=== PATIENT | female | born 1935 | race Caucasian/White ===

== ENCOUNTER 2018-11-11 10:19 | Inpatient (IN) ==
[2018-11-11] MEDS ORDERED: methylPREDNISolone SOD SUC 125 MG/2 ML VIAL IV STA (10:48)
[2018-11-11] MEDS ORDERED: AZITHROMYCIN INJ 500 MG in SODIUM CHLORIDE 0.9% 250 ML IV STA (10:48)
[2018-11-11] MEDS ORDERED: ONDANSETRON 4 MG/2 ML VIAL IV STA (10:48)
[2018-11-11] MEDS ORDERED: ALBUTEROL 2.5 MG/3 ML NEB RESP TX SCH (11:00)
[2018-11-11 11:23] LABS: Basophils # 0.1 10*3/uL (0.0-0.2); Basophils % 0.4 % (0.0-0.8); Eosinophils # 0.5 10*3/uL (0.0-0.87); Eosinophils % 4.2 % (0.00-10.9); Hematocrit 35.3 VOL% (35.7-47.0); Hemoglobin 10.9 GM/DL (12.0-16.0); Immature Granulocytes % 0.9 %; Immature Granulocytes Absolute 0.11 #; Lymphocytes # 0.8 10*3/uL (1.4-4.0); Lymphocytes % 6.6 % (21.3-54.2); Mean Corpuscular HGB Conc 30.9 GM/DL (32-36); Monocytes % 6.5 % (1.7-12.7); Neutrophils % 81.4 % (38.7-73.9); Platelet Count 497 T/CUMM (130-400); Red Blood Count 3.88 MC/CUMM (3.8-5.5); Red Cell Distribution Width 13.7 % (9.3-17.3); White Blood Count 12.4 T/CUMM (4-12)
[2018-11-11 11:32] LABS: PT Patient Result 10.9 SECS; Partial Thromboplastin Time 21.6 SECS (0-40)
[2018-11-11 11:58] LABS: Bilirubin,Total 0.4 MG/DL (0.2-1.0); Calcium 8.6 MG/DL (8.5-10.1); Osmolality,Calculated 279.4 MOS/KG (273-304); Total Protein 5.9 G/DL (6.4-8.3); Troponin I < 0.015 NG/ML (0.00-0.045)
[2018-11-11] MEDS ORDERED: cefTRIAXone 1,000 MG in SODIUM CHLORIDE 0.9% 100 ML IV STA (11:58)
[2018-11-11 12:21] LABS: Hypochromasia 1+; Platelet Estimate Adequate
[2018-11-11] MEDS ORDERED: LACTULOSE 20 GM/30 ML UDCUP PO PRN (12:23)
[2018-11-11] MEDS ORDERED: PROMETHAZINE 25 MG/1 ML VIAL IM PRN (12:23)
[2018-11-11] MEDS ORDERED: ACETAMINOPHEN 325 MG TABLET PO PRN ×2 (12:23→12:27)
[2018-11-11] MEDS ORDERED: ONDANSETRON 4 MG/2 ML VIAL IV PRN (12:23)
[2018-11-11] MEDS ORDERED: BUTALBITAL/ACETAMIN/CAFFEINE 50-325-40 MG TABLET PO PRN (12:27)
[2018-11-11] MEDS ORDERED: MAGNESIUM HYDROXIDE SUSP 30 ML UDCUP PO PRN (12:27)
[2018-11-11] MEDS: ALBUTEROL/IPRATROPIUM 3 ML NEB RESP TX SCH ×2 (13:00→19:09)
[2018-11-11] MEDS: DORNASE ALFA 2.5 MG/2.5 ML VIAL RESP TX SCH ×2 (13:11→19:15)
[2018-11-11] MEDS ORDERED: SODIUM CHLORIDE 0.9% 1,000 ML IV STA (14:06)
[2018-11-11] MEDS ORDERED: SODIUM CHLORIDE 0.9% 1,500 ML IV ONE (16:19)
[2018-11-11] MEDS: methylPREDNISolone SOD SUC 40 MG/1 ML VIAL IV SCH (17:20)
[2018-11-11] MEDS: PANTOPRAZOLE 40 MG TABLET PO SCH (17:20)
[2018-11-11] MEDS: LEVOFLOXACIN INJ 750 MG in PREMIX 1 EACH IV SCH (17:52)
[2018-11-11] MEDS: LORATADINE 10 MG TABLET PO SCH (17:57)
[2018-11-11] MEDS: AMITRIPTYLINE 100 MG TABLET PO SCH (17:58)
[2018-11-11] MEDS: guaiFENesin/DM ER 600-30 MG TABLET PO SCH ×2 (17:58→21:37)
[2018-11-11] MEDS: SODIUM CHLORIDE 0.9% 1,000 ML IV SCH (19:40)
[2018-11-11] MEDS ORDERED: VANCOMYCIN INJ 1,000 MG in SODIUM CHLORIDE 0.9% 250 ML IV ONE (21:33)
[2018-11-11] MEDS: PIPERACILLIN/TAZOBACTAM 3,375 MG in SODIUM CHLORIDE 0.9% 100 ML IV SCH (21:34)
[2018-11-11] MEDS: SIMVASTATIN 10 MG TABLET PO SCH (21:37)
[2018-11-11] MEDS: ENOXAPARIN 40 MG/0.4 ML SYRINGE SUBCUT SCH (21:37)
[2018-11-11] MEDS: DONEPEZIL 5 MG TABLET PO SCH (21:37)
[2018-11-11] MEDS: traZODone 50 MG TABLET PO SCH (21:37)
[2018-11-11] MEDS: MAGNESIUM CHLORIDE 64 MG TABLET PO SCH (21:37)
[2018-11-11] MEDS: FELODIPINE 10 MG PO SCH (21:45)
[2018-11-12] MEDS: ALBUTEROL/IPRATROPIUM 3 ML NEB RESP TX SCH ×4 (00:22→19:00)
[2018-11-12] MEDS: methylPREDNISolone SOD SUC 40 MG/1 ML VIAL IV SCH ×2 (01:00→11:39)
[2018-11-12 02:45] LABS: Calcium 7.7 MG/DL (8.5-10.1)
[2018-11-12 03:09] LABS: Immature Granulocytes Absolute 0.09 #; Lymphocytes # 0.8 10*3/uL (1.4-4.0); Lymphocytes % 8.8 % (21.3-54.2); Mean Corpuscular HGB Conc 30.7 GM/DL (32-36); Mean Corpuscular Volume 91.5 FL (87-102); Mean Platelet Volume 10.8 FL (9.6-12.0); Monocytes % 1.1 % (1.7-12.7); Neutrophils % 89.1 % (38.7-73.9); Platelet Count 396 T/CUMM (130-400); White Blood Count 9.4 T/CUMM (4-12)
[2018-11-12 03:20] LABS: Hemoglobin 8.6 GM/DL (12.0-16.0); Red Blood Count 3.06 MC/CUMM (3.8-5.5)
[2018-11-12] MEDS: PIPERACILLIN/TAZOBACTAM 3,375 MG in SODIUM CHLORIDE 0.9% 100 ML IV SCH ×3 (04:15→20:33)
[2018-11-12] MEDS: LEVOTHYROXINE 25 MCG TABLET PO SCH (06:37)
[2018-11-12] MEDS: DORNASE ALFA 2.5 MG/2.5 ML VIAL RESP TX SCH ×2 (08:30→19:00)
[2018-11-12] MEDS: guaiFENesin/DM ER 600-30 MG TABLET PO SCH ×2 (09:30→20:32)
[2018-11-12] MEDS: SODIUM CHLORIDE 0.9% 1,000 ML IV SCH (09:31)
[2018-11-12] MEDS: LORATADINE 10 MG TABLET PO SCH (09:31)
[2018-11-12] MEDS: MAGNESIUM CHLORIDE 64 MG TABLET PO SCH ×2 (09:31→20:32)
[2018-11-12] MEDS: AMITRIPTYLINE 100 MG TABLET PO SCH (09:31)
[2018-11-12] MEDS: ASPIRIN EC 81 MG TABLET PO SCH (09:31)
[2018-11-12] MEDS: PANTOPRAZOLE 40 MG TABLET PO SCH (09:31)
[2018-11-12] MEDS: FELODIPINE 10 MG PO SCH ×2 (09:32→20:37)
[2018-11-12] MEDS: LEVOFLOXACIN INJ 750 MG in PREMIX 1 EACH IV SCH (11:38)
[2018-11-12] MEDS: LACTATED RINGERS 1,000 ML IV SCH (14:42)
[2018-11-12] MEDS: ENOXAPARIN 40 MG/0.4 ML SYRINGE SUBCUT SCH (20:32)
[2018-11-12] MEDS: SIMVASTATIN 10 MG TABLET PO SCH (20:33)
[2018-11-12] MEDS: DONEPEZIL 5 MG TABLET PO SCH (20:33)
[2018-11-12] MEDS: traZODone 50 MG TABLET PO SCH (20:33)
[2018-11-13] MEDS: methylPREDNISolone SOD SUC 40 MG/1 ML VIAL IV SCH ×2 (00:11→11:47)
[2018-11-13] MEDS: ALBUTEROL/IPRATROPIUM 3 ML NEB RESP TX SCH ×4 (00:20→18:50)
[2018-11-13] MEDS: LACTATED RINGERS 1,000 ML IV SCH ×2 (05:13→16:20)
[2018-11-13 05:39] LABS: Basophils % 0.1 % (0.0-0.8); Hematocrit 26.6 VOL% (35.7-47.0); Hemoglobin 8.1 GM/DL (12.0-16.0); Immature Granulocytes % 1.3 %; Immature Granulocytes Absolute 0.21 #; Lymphocytes # 1.3 10*3/uL (1.4-4.0); Lymphocytes % 8.3 % (21.3-54.2); Mean Corpuscular HGB Conc 30.5 GM/DL (32-36); Mean Corpuscular Volume 90.5 FL (87-102); Mean Platelet Volume 10.3 FL (9.6-12.0); Monocytes % 2.5 % (1.7-12.7); Neutrophils % 87.8 % (38.7-73.9); Platelet Count 447 T/CUMM (130-400); Red Blood Count 2.94 MC/CUMM (3.8-5.5); White Blood Count 16.2 T/CUMM (4-12)
[2018-11-13 06:15] LABS: Calcium 8.5 MG/DL (8.5-10.1)
[2018-11-13] MEDS: LEVOTHYROXINE 25 MCG TABLET PO SCH (06:34)
[2018-11-13] MEDS: PIPERACILLIN/TAZOBACTAM 3,375 MG in SODIUM CHLORIDE 0.9% 100 ML IV SCH ×3 (06:34→21:09)
[2018-11-13] MEDS: DORNASE ALFA 2.5 MG/2.5 ML VIAL RESP TX SCH ×2 (08:14→18:50)
[2018-11-13] MEDS: guaiFENesin/DM ER 600-30 MG TABLET PO SCH ×2 (09:32→21:13)
[2018-11-13] MEDS: LORATADINE 10 MG TABLET PO SCH (09:32)
[2018-11-13] MEDS: MAGNESIUM CHLORIDE 64 MG TABLET PO SCH ×2 (09:32→21:09)
[2018-11-13] MEDS: AMITRIPTYLINE 100 MG TABLET PO SCH (09:33)
[2018-11-13] MEDS: ASPIRIN EC 81 MG TABLET PO SCH (09:33)
[2018-11-13] MEDS: FELODIPINE 10 MG PO SCH ×2 (09:33→21:13)
[2018-11-13] MEDS: PANTOPRAZOLE 40 MG TABLET PO SCH (09:33)
[2018-11-13] MEDS: LEVOFLOXACIN INJ 750 MG in PREMIX 1 EACH IV SCH (11:46)
[2018-11-13 19:05] LABS: Apearance,Urine CLEAR (Clear); Bilirubin,Urine Negative (Negative); Glucose,Urine (UA) Negative (Negative); Ketones,Urine Negative (Negative); Nitrite,Urine Negative (Negative); Protein,Urine Negative; Urine Color Yellow (Yellow); Urine Specific Gravity 1.025 (1.001-1.035)
[2018-11-13 19:06] LABS: Blood, Urine Negative (Negative); Ictotest,Urine Negative (Negative); Urine Urobilinogen 0.2 EU/DL (0.2-1.0)
[2018-11-13 19:07] LABS: Bacteria,Urine Moderate /HPF (Few); Squamous Epithelial Cell,Urine Many /HPF (0-10); WBC,Urine 20-30 /HPF (0-6)
[2018-11-13] MEDS: traZODone 50 MG TABLET PO SCH (21:09)
[2018-11-13] MEDS: DONEPEZIL 5 MG TABLET PO SCH (21:09)
[2018-11-13] MEDS: ENOXAPARIN 40 MG/0.4 ML SYRINGE SUBCUT SCH (21:09)
[2018-11-13] MEDS: SIMVASTATIN 10 MG TABLET PO SCH (21:09)
[2018-11-14] MEDS: ALBUTEROL/IPRATROPIUM 3 ML NEB RESP TX SCH ×2 (00:20→07:29)
[2018-11-14] MEDS: methylPREDNISolone SOD SUC 40 MG/1 ML VIAL IV SCH ×2 (01:45→13:18)
[2018-11-14] MEDS: PIPERACILLIN/TAZOBACTAM 3,375 MG in SODIUM CHLORIDE 0.9% 100 ML IV SCH ×2 (03:00→13:18)
[2018-11-14] MEDS: LEVOTHYROXINE 25 MCG TABLET PO SCH (05:34)
[2018-11-14] MEDS: LACTATED RINGERS 1,000 ML IV SCH (05:36)
[2018-11-14 07:00] LABS: Basophils % 0.2 % (0.0-0.8); Hematocrit 27.9 VOL% (35.7-47.0); Hemoglobin 8.6 GM/DL (12.0-16.0); Immature Granulocytes % 1.9 %; Immature Granulocytes Absolute 0.23 #; Lymphocytes # 1.2 10*3/uL (1.4-4.0); Mean Corpuscular HGB Conc 30.8 GM/DL (32-36); Mean Corpuscular Volume 90.6 FL (87-102); Mean Platelet Volume 10.5 FL (9.6-12.0); Monocytes % 3.1 % (1.7-12.7); Neutrophils % 84.8 % (38.7-73.9); Platelet Count 480 T/CUMM (130-400); Red Blood Count 3.08 MC/CUMM (3.8-5.5); Red Cell Distribution Width 14.1 % (9.3-17.3); White Blood Count 11.9 T/CUMM (4-12)
[2018-11-14 07:26] LABS: Calcium 8.1 MG/DL (8.5-10.1); Osmolality,Calculated 293.7 MOS/KG (273-304)
[2018-11-14] MEDS: DORNASE ALFA 2.5 MG/2.5 ML VIAL RESP TX SCH (07:29)
[2018-11-14] MEDS: FELODIPINE 10 MG PO SCH (09:37)
[2018-11-14] MEDS: LORATADINE 10 MG TABLET PO SCH (09:39)
[2018-11-14] MEDS: MAGNESIUM CHLORIDE 64 MG TABLET PO SCH (09:39)
[2018-11-14] MEDS: AMITRIPTYLINE 100 MG TABLET PO SCH (09:39)
[2018-11-14] MEDS: PANTOPRAZOLE 40 MG TABLET PO SCH (09:39)
[2018-11-14] MEDS: guaiFENesin/DM ER 600-30 MG TABLET PO SCH (09:39)
[2018-11-14] MEDS: ASPIRIN EC 81 MG TABLET PO SCH (09:39)
[2018-11-14 12:07] VITALS: BP 136/84
[2018-11-14] MEDS: LEVOFLOXACIN INJ 750 MG in PREMIX 1 EACH IV SCH (13:18)
== END 2018-11-14 14:24 | disposition hospice, home (50) | DRG 871 ==
LOC: EDUNIT# → EDBD → N.ED 10:19 → N.EDINP 12:23 → SUATTDRO 12:23 → N.5E 14:28
PROVIDERS: ADMIT Internal Medicine Nephrology; ATTEND Family Medicine

== ENCOUNTER 2020-05-12 10:23 | Observation (INO) ==
[2020-05-12 10:47] LABS: Basophils # 0.1 10*3/uL (0.0-0.2); Basophils % 0.4 % (0.0-0.8); Eosinophils # 0.1 10*3/uL (0.0-0.87); Eosinophils % 0.6 % (0.00-10.9); Hematocrit 48.1 VOL% (35.7-47.0); Hemoglobin 15.7 GM/DL (12.0-16.0); Immature Granulocytes % 0.5 %; Immature Granulocytes Absolute 0.08 #; Lymphocytes # 1.9 10*3/uL (1.4-4.0); Mean Corpuscular HGB Conc 32.6 GM/DL (32-36); Mean Corpuscular Volume 89.7 FL (87-102); Mean Platelet Volume 9.3 FL (9.6-12.0); Monocytes % 5.5 % (1.7-12.7); Platelet Count 401 T/CUMM (130-400); Red Blood Count 5.36 MC/CUMM (3.8-5.5); Red Cell Distribution Width 13.2 % (9.3-17.3); White Blood Count 16.1 T/CUMM (4-12)
[2020-05-12 11:05] LABS: Calcium 9.3 MG/DL (8.5-10.1); Osmolality,Calculated 283.4 MOS/KG (273-304)
[2020-05-12 11:21] LABS: Bilirubin,Urine Negative (Negative); Blood, Urine Negative (Negative); Glucose,Urine (UA) 50 mg/dL (Negative); Ketones,Urine 5 mg/dL (Negative); Mucus,Urine Occasional /LPF (Occasional); Nitrite,Urine Negative (Negative); Protein,Urine >=500 MG/DL; RBC,Urine 4 /HPF (0-4); Urine Appearance CLEAR (Clear); Urine Color Yellow (Yellow); Urine Specific Gravity 1.011 (1.001-1.035); Urine Urobilinogen < 2.0 EU/DL (0.2-1.0); WBC,Urine <1 /HPF (0-6)
[2020-05-12] MEDS ORDERED: hydrALAZINE 20 MG/1 ML VIAL IV PRN (12:24)
[2020-05-12] MEDS ORDERED: GLUCAGON 1 MG VIAL IM PRN (12:24)
[2020-05-12] MEDS ORDERED: DOCUSATE SODIUM 100 MG CAPSULE PO PRN (12:24)
[2020-05-12] MEDS ORDERED: ACETAMINOPHEN 325 MG TABLET PO PRN (12:24)
[2020-05-12] MEDS ORDERED: guaiFENesin/DM ER 600-30 MG TABLET PO PRN (12:24)
[2020-05-12] MEDS ORDERED: DEXTROSE 50% 25 GM/50 ML VIAL IV PRN (12:24)
[2020-05-12] MEDS ORDERED: POTASSIUM CHLORIDE INJ 30 MEQ in SODIUM CHLORIDE 0.9% 1,000 ML IV SCH (12:30)
[2020-05-12] MEDS: hydrALAZINE 20 MG/1 ML VIAL IV SCH ×2 (13:52→20:42)
[2020-05-12] MEDS ORDERED: cefTRIAXone 1,000 MG in SYRINGE 1 EACH IV SCH (14:00)
[2020-05-12 14:16] LABS: Risk Ratio 4.62; Thyroid Stimulating Hormone 4.05 uIU/ml (0.358-3.74); VLDL CHOLESTEROL 34.2 MG/DL
[2020-05-12] MEDS: POTASSIUM CHLORIDE INJ 30 MEQ in SODIUM CHLORIDE 0.9% 1,000 ML IV SCH (14:34)
[2020-05-12 16:45] LABS: Calcium 9.1 MG/DL (8.5-10.1); Osmolality,Calculated 281.5 MOS/KG (273-304)
[2020-05-12] MEDS ORDERED: ENOXAPARIN 40 MG/0.4 ML SYRINGE SUBCUT SCH (21:00)
[2020-05-13] MEDS: hydrALAZINE 20 MG/1 ML VIAL IV SCH ×3 (01:37→12:33)
[2020-05-13] MEDS: POTASSIUM CHLORIDE INJ 30 MEQ in SODIUM CHLORIDE 0.9% 1,000 ML IV SCH (04:00)
[2020-05-13] MEDS ORDERED: ONDANSETRON 4 MG/2 ML VIAL IV PRN (04:08)
[2020-05-13 06:15] LABS: Basophils % 0.2 % (0.0-0.8); Eosinophils % 0.1 % (0.00-10.9); Hematocrit 45.6 VOL% (35.7-47.0); Immature Granulocytes % 0.5 %; Lymphocytes # 2.1 10*3/uL (1.4-4.0); Lymphocytes % 10.9 % (21.3-54.2); Mean Corpuscular HGB Conc 32.9 GM/DL (32-36); Mean Corpuscular Volume 89.8 FL (87-102); Mean Platelet Volume 9.3 FL (9.6-12.0); Monocytes % 5.8 % (1.7-12.7); Neutrophils % 82.5 % (38.7-73.9); Platelet Count 470 T/CUMM (130-400); Red Blood Count 5.08 MC/CUMM (3.8-5.5); Red Cell Distribution Width 13.5 % (9.3-17.3); White Blood Count 19.2 T/CUMM (4-12)
[2020-05-13 06:30] LABS: Calcium 8.9 MG/DL (8.5-10.1); Osmolality,Calculated 286.4 MOS/KG (273-304)
[2020-05-13] MEDS ORDERED: LEVOTHYROXINE 100 MCG VIAL IV SCH (07:00)
[2020-05-13 11:32] VITALS: BP 155/53
[2020-05-13] MEDS ORDERED: ACETAMINOPHEN 325 MG TABLET PO PRN (11:40)
[2020-05-13] MEDS ORDERED: MAGNESIUM HYDROXIDE SUSP 30 ML UDCUP PO PRN (11:40)
[2020-05-13] MEDS ORDERED: DONEPEZIL 5 MG TABLET PO SCH (21:00)
[2020-05-13] MEDS ORDERED: DOXYCYCLINE HYCLATE 100 MG CAPSULE PO SCH (21:00)
[2020-05-13] MEDS ORDERED: SIMVASTATIN 10 MG TABLET PO SCH (21:00)
[2020-05-13] MEDS ORDERED: CEFUROXIME 500 MG TABLET PO SCH (21:00)
[2020-05-13] MEDS ORDERED: FELODIPINE 5 MG TABLET PO SCH (21:00)
[2020-05-13] MEDS ORDERED: MAGNESIUM CHLORIDE 64 MG TABLET PO SCH (21:00)
[2020-05-14] MEDS ORDERED: LEVOTHYROXINE 25 MCG TABLET PO SCH (07:00)
[2020-05-14] MEDS ORDERED: PANTOPRAZOLE 40 MG TABLET PO SCH (09:00)
[2020-05-14] MEDS ORDERED: CITALOPRAM 20 MG TABLET PO SCH (09:00)
[2020-05-14] MEDS ORDERED: LORATADINE 10 MG TABLET PO SCH (09:00)
[2020-05-14] MEDS ORDERED: ASPIRIN CHEW 81 MG TABLET PO SCH (09:00)
== END 2020-05-13 14:59 ==
LOC: EDBD → EDUNIT# → N.ED 10:23 → N.EDINP 10:23 → N.4E 15:22
PROVIDERS: ADMIT Internal Medicine; ATTEND Internal Medicine

== ENCOUNTER 2021-05-29 11:59 | Inpatient (IN) ==
[2021-05-29] MEDS ORDERED: SODIUM CHLORIDE 0.9% 1,000 ML IV STA ×2 (12:29→13:13)
[2021-05-29 12:48] LABS: Basophils # 0.1 10*3/uL (0.0-0.2); Basophils % 0.3 % (0.0-0.8); Eosinophils # 0.1 10*3/uL (0.0-0.87); Eosinophils % 0.2 % (0.00-10.9); Hematocrit 39.7 VOL% (35.7-47.0); Hemoglobin 12.4 GM/DL (12.0-16.0); Immature Granulocytes % 1.1 %; Immature Granulocytes Absolute 0.45 #; Lymphocytes # 2.6 10*3/uL (1.4-4.0); Lymphocytes % 6.5 % (21.3-54.2); Mean Corpuscular HGB Conc 31.2 GM/DL (32-36); Mean Platelet Volume 9.7 FL (9.6-12.0); Neutrophils % 86.9 % (38.7-73.9); Platelet Count 428 T/CUMM (130-400); Red Blood Count 4.46 MC/CUMM (3.8-5.5); Red Cell Distribution Width 14.2 % (9.3-17.3); White Blood Count 39.8 T/CUMM (4-12)
[2021-05-29] MEDS ORDERED: LEVOFLOXACIN INJ 500 MG/100 ML PREMIX IV STA (13:03)
[2021-05-29 13:07] LABS: Band Neutrophils 9 % (0-10); Lymphocytes 8 % (20-55); Platelet Estimate Normal; Segmented Neutrophils 76 % (50-85); Total Cells Counted 100
[2021-05-29 13:08] LABS: Alanine Aminotransferase 23 U/L (13-56); Alkaline Phosphatase 81 U/L (45-117); Anisocytosis 1+; Aspartate Amino Transferase 16 U/L (0-37); Blood Urea Nitrogen 32 MG/DL (7-18); Calcium 8.4 MG/DL (8.5-10.1); Carbon Dioxide 30 MMOL/L (21-32); Estimated Glom Filtration Rate 29 ML/MIN; Glucose 126 MG/DL (74-106); Macrocytosis Slight; Osmolality,Calculated 287.4 MOS/KG (273-304); Potassium 3.6 MMOL/L (3.5-5.1); Sodium 140 MMOL/L (136-145); Total Protein 5.5 G/DL (6.4-8.2)
[2021-05-29 13:36] LABS: Bacteria,Urine Moderate /HPF (Few); Bilirubin,Urine Negative (Negative); Blood, Urine Moderate mg/dL (Negative); Glucose,Urine (UA) Negative (Negative); Hyaline Casts,Urine 27 /LPF (0-3); Ketones,Urine Negative (Negative); Mucus,Urine Many /LPF (Occasional); Nitrite,Urine Negative (Negative); Protein,Urine 30 MG/DL; RBC,Urine 9 /HPF (0-4); Squamous Epithelial Cell,Urine Few /HPF (0-10); Urine Appearance CLOUDY (Clear); Urine Color Amber (Yellow); Urine Specific Gravity 1.024 (1.001-1.035)
[2021-05-29] MEDS ORDERED: PIPERACILLIN/TAZOBACTAM 3,375 MG in SODIUM CHLORIDE 0.9% 100 ML IV STA (14:06)
[2021-05-29] MEDS ORDERED: GLUCAGON 1 MG VIAL IM PRN (15:25)
[2021-05-29] MEDS ORDERED: ONDANSETRON 4 MG/2 ML VIAL IV PRN (15:25)
[2021-05-29] MEDS ORDERED: LACTATED RINGERS 1,000 ML IV ONE (15:37)
[2021-05-29] MEDS ORDERED: DEXTROSE 50% 25 GM/50 ML SYRINGE IV PRN (15:40)
[2021-05-29 16:28] LABS: Free T4 (Free Thyroxine) 1.35 NG/DL (0.76-1.46); Thyroid Stimulating Hormone 0.694 uIU/ml (0.358-3.74)
[2021-05-29] MEDS: PANTOPRAZOLE 40 MG VIAL IV SCH (17:43)
[2021-05-29] MEDS: ENOXAPARIN 30 MG/0.3 ML SYRINGE SUBCUT SCH (17:43)
[2021-05-29] MEDS: LACTATED RINGERS 1,000 ML IV SCH ×2 (17:44→17:46)
[2021-05-29] MEDS: ALBUTEROL/IPRATROPIUM 3 ML NEB RESP TX SCH (20:38)
[2021-05-29] MEDS: RIVASTIGMINE 4.6 MG/24 HR PATCH TRANSDERM SCH (21:04)
[2021-05-29] MEDS: PIPERACILLIN/TAZOBACTAM 3,375 MG in SODIUM CHLORIDE 0.9% 100 ML IV SCH (21:05)
[2021-05-30] MEDS: LACTATED RINGERS 1,000 ML IV SCH ×5 (00:41→23:44)
[2021-05-30] MEDS: ALBUTEROL/IPRATROPIUM 3 ML NEB RESP TX SCH ×4 (00:55→19:51)
[2021-05-30 05:32] LABS: Basophils # 0.1 10*3/uL (0.0-0.2); Basophils % 0.4 % (0.0-0.8); Eosinophils # 0.2 10*3/uL (0.0-0.87); Eosinophils % 0.8 % (0.00-10.9); Hematocrit 33.4 VOL% (35.7-47.0); Hemoglobin 10.4 GM/DL (12.0-16.0); Immature Granulocytes % 0.9 %; Immature Granulocytes Absolute 0.21 #; Lymphocytes # 1.9 10*3/uL (1.4-4.0); Lymphocytes % 8.1 % (21.3-54.2); Mean Corpuscular HGB Conc 31.1 GM/DL (32-36); Mean Corpuscular Volume 88.1 FL (87-102); Mean Platelet Volume 9.9 FL (9.6-12.0); Neutrophils % 85.8 % (38.7-73.9); Platelet Count 341 T/CUMM (130-400); Red Blood Count 3.79 MC/CUMM (3.8-5.5); Red Cell Distribution Width 14.4 % (9.3-17.3); White Blood Count 23.7 T/CUMM (4-12)
[2021-05-30 05:44] LABS: Albumin 2.4 G/DL (3.4-5.0); Bilirubin,Total 1.3 MG/DL (0.20-1.00); Calcium 7.9 MG/DL (8.5-10.1); Osmolality,Calculated 284.1 MOS/KG (273-304); Total Protein 5.1 G/DL (6.4-8.2)
[2021-05-30 06:02] LABS: Eosinophils 1 % (0-10); Lymphocytes 11 % (20-55); Segmented Neutrophils 86 % (50-85); Total Cells Counted 100
[2021-05-30 06:03] LABS: Anisocytosis 1+; Platelet Estimate Normal
[2021-05-30] MEDS: PIPERACILLIN/TAZOBACTAM 3,375 MG in SODIUM CHLORIDE 0.9% 100 ML IV SCH ×3 (06:07→21:12)
[2021-05-30] MEDS: LEVOTHYROXINE 100 MCG VIAL IV SCH (06:08)
[2021-05-30] MEDS: PANTOPRAZOLE 40 MG VIAL IV SCH (09:39)
[2021-05-30] MEDS: VANCOMYCIN INJ 1,000 MG in SODIUM CHLORIDE 0.9% 250 ML IV SCH (10:55)
[2021-05-30] MEDS: ENOXAPARIN 30 MG/0.3 ML SYRINGE SUBCUT SCH (15:23)
[2021-05-30] MEDS: ACETAMINOPHEN 650 MG SUPP RECTAL PRN (17:29)
[2021-05-30] MEDS: RIVASTIGMINE 4.6 MG/24 HR PATCH TRANSDERM SCH (21:12)
[2021-05-31] MEDS: ALBUTEROL/IPRATROPIUM 3 ML NEB RESP TX SCH ×4 (00:31→20:57)
[2021-05-31] MEDS: ACETAMINOPHEN 650 MG SUPP RECTAL PRN (00:58)
[2021-05-31] MEDS: POTASSIUM CHLORIDE RIDER 10 MEQ/100 ML PREMIX IV PRN ×3 (01:35→15:23)
[2021-05-31 05:29] LABS: Basophils % 0.3 % (0.0-0.8); Eosinophils # 0.2 10*3/uL (0.0-0.87); Eosinophils % 1.4 % (0.00-10.9); Hematocrit 32.7 VOL% (35.7-47.0); Hemoglobin 10.1 GM/DL (12.0-16.0); Immature Granulocytes % 0.5 %; Immature Granulocytes Absolute 0.07 #; Lymphocytes # 1.3 10*3/uL (1.4-4.0); Lymphocytes % 9.1 % (21.3-54.2); Mean Corpuscular HGB Conc 30.9 GM/DL (32-36); Mean Corpuscular Volume 90.1 FL (87-102); Mean Platelet Volume 10.3 FL (9.6-12.0); Monocytes % 5.5 % (1.7-12.7); Neutrophils % 83.2 % (38.7-73.9); Platelet Count 296 T/CUMM (130-400); Red Blood Count 3.63 MC/CUMM (3.8-5.5); Red Cell Distribution Width 14.2 % (9.3-17.3); White Blood Count 13.9 T/CUMM (4-12)
[2021-05-31 05:54] LABS: Calcium 8.4 MG/DL (8.5-10.1); Osmolality,Calculated 279.3 MOS/KG (273-304)
[2021-05-31] MEDS: LEVOTHYROXINE 100 MCG VIAL IV SCH (05:57)
[2021-05-31] MEDS: PIPERACILLIN/TAZOBACTAM 3,375 MG in SODIUM CHLORIDE 0.9% 100 ML IV SCH ×2 (06:06→20:39)
[2021-05-31] MEDS ORDERED: MAGNESIUM SULF RIDER 2 GM/50 ML PREMIX IV PRN (10:25)
[2021-05-31] MEDS ORDERED: MAGNESIUM SULF RIDER 4 GM/100 ML PREMIX IV PRN (10:25)
[2021-05-31] MEDS: PANTOPRAZOLE 40 MG VIAL IV SCH (12:31)
[2021-05-31] MEDS: LACTATED RINGERS 1,000 ML IV SCH ×2 (12:36→20:38)
[2021-05-31] MEDS: hydrALAZINE 20 MG/1 ML VIAL IV PRN (12:40)
[2021-05-31] MEDS: VANCOMYCIN INJ 1,000 MG in SODIUM CHLORIDE 0.9% 250 ML IV SCH (12:45)
[2021-05-31] MEDS: ENOXAPARIN 30 MG/0.3 ML SYRINGE SUBCUT SCH (15:18)
[2021-05-31] MEDS: RIVASTIGMINE 4.6 MG/24 HR PATCH TRANSDERM SCH (21:03)
[2021-05-31] MEDS: MENTHOL/ZINC OXIDE OINT 71 GM JAR TOP SCH (22:39)
[2021-06-01] MEDS: ALBUTEROL/IPRATROPIUM 3 ML NEB RESP TX SCH ×4 (00:46→20:12)
[2021-06-01] MEDS: POTASSIUM CHLORIDE RIDER 10 MEQ/100 ML PREMIX IV PRN ×5 (01:08→15:36)
[2021-06-01] MEDS: LACTATED RINGERS 1,000 ML IV SCH ×2 (03:12→09:31)
[2021-06-01] MEDS: PIPERACILLIN/TAZOBACTAM 3,375 MG in SODIUM CHLORIDE 0.9% 100 ML IV SCH ×2 (03:59→09:30)
[2021-06-01] MEDS: LEVOTHYROXINE 100 MCG VIAL IV SCH (05:35)
[2021-06-01 09:10] LABS: Basophils % 0.3 % (0.0-0.8); Eosinophils # 0.3 10*3/uL (0.0-0.87); Eosinophils % 2.3 % (0.00-10.9); Hematocrit 36.1 VOL% (35.7-47.0); Hemoglobin 11.1 GM/DL (12.0-16.0); Immature Granulocytes % 0.5 %; Immature Granulocytes Absolute 0.06 #; Lymphocytes # 1.1 10*3/uL (1.4-4.0); Lymphocytes % 9.3 % (21.3-54.2); Mean Corpuscular HGB Conc 30.7 GM/DL (32-36); Mean Corpuscular Volume 90.3 FL (87-102); Mean Platelet Volume 10.3 FL (9.6-12.0); Monocytes % 7.4 % (1.7-12.7); Neutrophils % 80.2 % (38.7-73.9); Platelet Count 284 T/CUMM (130-400)
[2021-06-01] MEDS: MENTHOL/ZINC OXIDE OINT 71 GM JAR TOP SCH ×2 (09:29→20:44)
[2021-06-01] MEDS: hydrALAZINE 20 MG/1 ML VIAL IV PRN (09:31)
[2021-06-01] MEDS: PANTOPRAZOLE 40 MG VIAL IV SCH (09:32)
[2021-06-01 09:45] LABS: Calcium 8.3 MG/DL (8.5-10.1); Osmolality,Calculated 277.5 MOS/KG (273-304); Potassium 3.1 MMOL/L (3.5-5.1)
[2021-06-01] MEDS: METOPROLOL TARTRATE 25 MG TABLET PO SCH ×2 (11:38→20:49)
[2021-06-01] MEDS: VANCOMYCIN INJ 1,000 MG in SODIUM CHLORIDE 0.9% 250 ML IV SCH (11:38)
[2021-06-01] MEDS: ENOXAPARIN 30 MG/0.3 ML SYRINGE SUBCUT SCH (15:37)
[2021-06-01] MEDS: RIVASTIGMINE 4.6 MG/24 HR PATCH TRANSDERM SCH (20:44)
[2021-06-01] MEDS: CEFDINIR 300 MG CAPSULE PO SCH (20:49)
[2021-06-02] MEDS: ALBUTEROL/IPRATROPIUM 3 ML NEB RESP TX SCH ×4 (00:43→19:19)
[2021-06-02] MEDS: LEVOTHYROXINE 25 MCG TABLET PO SCH (05:32)
[2021-06-02 06:01] LABS: Basophils % 0.4 % (0.0-0.8); Eosinophils # 0.3 10*3/uL (0.0-0.87); Eosinophils % 3.4 % (0.00-10.9); Hematocrit 33.6 VOL% (35.7-47.0); Hemoglobin 10.7 GM/DL (12.0-16.0); Immature Granulocytes % 0.5 %; Immature Granulocytes Absolute 0.05 #; Lymphocytes # 1.1 10*3/uL (1.4-4.0); Lymphocytes % 11.5 % (21.3-54.2); Mean Corpuscular HGB Conc 31.8 GM/DL (32-36); Mean Corpuscular Volume 88.2 FL (87-102); Mean Platelet Volume 10.3 FL (9.6-12.0); Monocytes % 8.1 % (1.7-12.7); Neutrophils % 76.1 % (38.7-73.9); Platelet Count 367 T/CUMM (130-400); Red Blood Count 3.81 MC/CUMM (3.8-5.5); White Blood Count 9.7 T/CUMM (4-12)
[2021-06-02 06:16] LABS: Calcium 8.6 MG/DL (8.5-10.1); Osmolality,Calculated 282.1 MOS/KG (273-304); Potassium 3.1 MMOL/L (3.5-5.1)
[2021-06-02] MEDS: hydrALAZINE 20 MG/1 ML VIAL IV PRN (09:02)
[2021-06-02] MEDS: PANTOPRAZOLE 40 MG TABLET PO SCH (09:02)
[2021-06-02] MEDS: METOPROLOL TARTRATE 25 MG TABLET PO SCH ×2 (09:02→20:30)
[2021-06-02] MEDS: POTASSIUM CHLORIDE 20 MEQ TABLET PO PRN ×3 (09:02→13:17)
[2021-06-02] MEDS: MENTHOL/ZINC OXIDE OINT 71 GM JAR TOP SCH ×2 (09:03→20:31)
[2021-06-02] MEDS: ENOXAPARIN 30 MG/0.3 ML SYRINGE SUBCUT SCH (15:28)
[2021-06-02] MEDS: FELODIPINE 5 MG TABLET PO SCH (20:30)
[2021-06-02] MEDS: CEFDINIR 300 MG CAPSULE PO SCH (20:30)
[2021-06-02] MEDS: RIVASTIGMINE 4.6 MG/24 HR PATCH TRANSDERM SCH (20:31)
[2021-06-03] MEDS: ALBUTEROL/IPRATROPIUM 3 ML NEB RESP TX SCH ×2 (02:00→07:21)
[2021-06-03] MEDS: LEVOTHYROXINE 25 MCG TABLET PO SCH (05:33)
[2021-06-03 06:19] LABS: Basophils # 0.1 10*3/uL (0.0-0.2); Basophils % 0.4 % (0.0-0.8); Eosinophils # 0.2 10*3/uL (0.0-0.87); Eosinophils % 1.8 % (0.00-10.9); Hematocrit 35.5 VOL% (35.7-47.0); Immature Granulocytes % 0.5 %; Immature Granulocytes Absolute 0.06 #; Lymphocytes # 1.3 10*3/uL (1.4-4.0); Lymphocytes % 11.4 % (21.3-54.2); Mean Corpuscular Volume 88.1 FL (87-102); Mean Platelet Volume 10.6 FL (9.6-12.0); Monocytes % 9.1 % (1.7-12.7); Neutrophils % 76.8 % (38.7-73.9); Platelet Count 432 T/CUMM (130-400); Red Blood Count 4.03 MC/CUMM (3.8-5.5); Red Cell Distribution Width 14.4 % (9.3-17.3); White Blood Count 11.5 T/CUMM (4-12)
[2021-06-03 06:40] LABS: Calcium 8.9 MG/DL (8.5-10.1); Osmolality,Calculated 287.8 MOS/KG (273-304); Potassium 3.4 MMOL/L (3.5-5.1)
[2021-06-03] MEDS: FELODIPINE 5 MG TABLET PO SCH ×2 (10:10→21:11)
[2021-06-03] MEDS: MENTHOL/ZINC OXIDE OINT 71 GM JAR TOP SCH ×2 (10:10→21:12)
[2021-06-03] MEDS: METOPROLOL TARTRATE 25 MG TABLET PO SCH ×2 (10:10→21:11)
[2021-06-03] MEDS: PANTOPRAZOLE 40 MG TABLET PO SCH (10:10)
[2021-06-03] MEDS: CITALOPRAM 20 MG TABLET PO SCH (10:10)
[2021-06-03] MEDS: LEVALBUTEROL 1.25 MG/3 ML NEB RESP TX SCH (14:30)
[2021-06-03] MEDS: ENOXAPARIN 30 MG/0.3 ML SYRINGE SUBCUT SCH (15:46)
[2021-06-03] MEDS: CEFDINIR 300 MG CAPSULE PO SCH (21:11)
[2021-06-03] MEDS: RIVASTIGMINE 4.6 MG/24 HR PATCH TRANSDERM SCH (21:12)
[2021-06-04] MEDS: LEVALBUTEROL 1.25 MG/3 ML NEB RESP TX SCH ×2 (00:48→07:00)
[2021-06-04] MEDS: LEVOTHYROXINE 25 MCG TABLET PO SCH (05:32)
[2021-06-04] MEDS: METOPROLOL TARTRATE 25 MG TABLET PO SCH ×2 (09:13→21:16)
[2021-06-04] MEDS: MENTHOL/ZINC OXIDE OINT 71 GM JAR TOP SCH ×2 (09:13→21:17)
[2021-06-04] MEDS: FELODIPINE 5 MG TABLET PO SCH ×2 (09:14→21:17)
[2021-06-04] MEDS: PANTOPRAZOLE 40 MG TABLET PO SCH (09:14)
[2021-06-04] MEDS: CITALOPRAM 20 MG TABLET PO SCH (09:14)
[2021-06-04 09:44] LABS: Basophils # 0.1 10*3/uL (0.0-0.2); Basophils % 0.6 % (0.0-0.8); Eosinophils # 0.3 10*3/uL (0.0-0.87); Eosinophils % 1.6 % (0.00-10.9); Hematocrit 37.3 VOL% (35.7-47.0); Hemoglobin 11.7 GM/DL (12.0-16.0); Immature Granulocytes % 0.8 %; Immature Granulocytes Absolute 0.13 #; Lymphocytes # 1.6 10*3/uL (1.4-4.0); Lymphocytes % 9.7 % (21.3-54.2); Mean Corpuscular HGB Conc 31.4 GM/DL (32-36); Mean Corpuscular Volume 88.8 FL (87-102); Mean Platelet Volume 10.4 FL (9.6-12.0); Monocytes % 8.2 % (1.7-12.7); Neutrophils % 79.1 % (38.7-73.9); Platelet Count 496 T/CUMM (130-400); Red Cell Distribution Width 14.5 % (9.3-17.3); White Blood Count 16.1 T/CUMM (4-12)
[2021-06-04 10:17] LABS: Calcium 8.9 MG/DL (8.5-10.1); Osmolality,Calculated 289.8 MOS/KG (273-304); Potassium 3.2 MMOL/L (3.5-5.1)
[2021-06-04] MEDS: POTASSIUM CHLORIDE 20 MEQ TABLET PO PRN ×4 (14:21→21:17)
[2021-06-04] MEDS: ENOXAPARIN 30 MG/0.3 ML SYRINGE SUBCUT SCH (15:46)
[2021-06-04] MEDS: CEFDINIR 300 MG CAPSULE PO SCH (21:16)
[2021-06-04] MEDS: RIVASTIGMINE 4.6 MG/24 HR PATCH TRANSDERM SCH (21:17)
[2021-06-05 05:24] LABS: Calcium 9.2 MG/DL (8.5-10.1); Osmolality,Calculated 297.6 MOS/KG (273-304)
[2021-06-05] MEDS: LEVOTHYROXINE 25 MCG TABLET PO SCH (06:10)
[2021-06-05] MEDS: FELODIPINE 5 MG TABLET PO SCH ×2 (09:20→21:50)
[2021-06-05] MEDS: METOPROLOL TARTRATE 25 MG TABLET PO SCH ×2 (09:20→21:50)
[2021-06-05] MEDS: PANTOPRAZOLE 40 MG TABLET PO SCH (09:20)
[2021-06-05] MEDS: CITALOPRAM 20 MG TABLET PO SCH (09:20)
[2021-06-05] MEDS: hydrALAZINE 20 MG/1 ML VIAL IV PRN (09:24)
[2021-06-05] MEDS: MENTHOL/ZINC OXIDE OINT 71 GM JAR TOP SCH ×2 (09:29→21:50)
[2021-06-05] MEDS ORDERED: LACTATED RINGERS 250 ML IV ONE (14:10)
[2021-06-05] MEDS: ENOXAPARIN 30 MG/0.3 ML SYRINGE SUBCUT SCH ×2 (14:47→16:32)
[2021-06-05] MEDS ORDERED: METOPROLOL TARTRATE 5 MG/5 ML VIAL IV ONE ×2 (15:11→15:14)
[2021-06-05 15:37] LABS: Basophils # 0.1 10*3/uL (0.0-0.2); Basophils % 0.4 % (0.0-0.8); Eosinophils % 0.3 % (0.00-10.9); Hematocrit 38.3 VOL% (35.7-47.0); Hemoglobin 11.8 GM/DL (12.0-16.0); Immature Granulocytes % 0.6 %; Immature Granulocytes Absolute 0.09 #; Lymphocytes # 1.2 10*3/uL (1.4-4.0); Lymphocytes % 8.4 % (21.3-54.2); Mean Corpuscular HGB Conc 30.8 GM/DL (32-36); Mean Corpuscular Volume 89.1 FL (87-102); Mean Platelet Volume 10.4 FL (9.6-12.0); Monocytes % 8.6 % (1.7-12.7); Neutrophils % 81.7 % (38.7-73.9); Platelet Count 630 T/CUMM (130-400); Red Cell Distribution Width 14.7 % (9.3-17.3)
[2021-06-05] MEDS: LACTATED RINGERS 1,000 ML IV SCH (17:50)
[2021-06-05] MEDS: RIVASTIGMINE 4.6 MG/24 HR PATCH TRANSDERM SCH (21:50)
[2021-06-05] MEDS: CEFDINIR 300 MG CAPSULE PO SCH (21:50)
[2021-06-06 05:16] LABS: Basophils # 0.1 10*3/uL (0.0-0.2); Basophils % 0.7 % (0.0-0.8); Eosinophils # 0.4 10*3/uL (0.0-0.87); Eosinophils % 2.4 % (0.00-10.9); Hematocrit 40.1 VOL% (35.7-47.0); Hemoglobin 12.2 GM/DL (12.0-16.0); Immature Granulocytes % 0.7 %; Immature Granulocytes Absolute 0.11 #; Lymphocytes # 1.8 10*3/uL (1.4-4.0); Lymphocytes % 11.6 % (21.3-54.2); Mean Corpuscular HGB Conc 30.4 GM/DL (32-36); Mean Corpuscular Volume 92.2 FL (87-102); Mean Platelet Volume 10.9 FL (9.6-12.0); Monocytes % 8.2 % (1.7-12.7); Neutrophils % 76.4 % (38.7-73.9); Platelet Count 580 T/CUMM (130-400); Red Blood Count 4.35 MC/CUMM (3.8-5.5); Red Cell Distribution Width 14.7 % (9.3-17.3); White Blood Count 15.3 T/CUMM (4-12)
[2021-06-06 06:09] LABS: Calcium 9.4 MG/DL (8.5-10.1); Osmolality,Calculated 300.4 MOS/KG (273-304); Potassium 3.8 MMOL/L (3.5-5.1)
[2021-06-06] MEDS: LEVOTHYROXINE 25 MCG TABLET PO SCH (06:41)
[2021-06-06] MEDS: MENTHOL/ZINC OXIDE OINT 71 GM JAR TOP SCH ×2 (10:02→21:43)
[2021-06-06] MEDS: FELODIPINE 5 MG TABLET PO SCH ×2 (11:24→21:44)
[2021-06-06] MEDS: METOPROLOL TARTRATE 25 MG TABLET PO SCH ×2 (11:24→21:44)
[2021-06-06] MEDS: CITALOPRAM 20 MG TABLET PO SCH (11:24)
[2021-06-06] MEDS: PANTOPRAZOLE 40 MG TABLET PO SCH (11:25)
[2021-06-06] MEDS: LACTATED RINGERS 1,000 ML IV SCH (12:09)
[2021-06-06] MEDS: ENOXAPARIN 30 MG/0.3 ML SYRINGE SUBCUT SCH (16:44)
[2021-06-06] MEDS: RIVASTIGMINE 4.6 MG/24 HR PATCH TRANSDERM SCH (21:43)
[2021-06-06] MEDS: hydrALAZINE 20 MG/1 ML VIAL IV PRN (23:39)
[2021-06-07] MEDS: LEVOTHYROXINE 25 MCG TABLET PO SCH (06:09)
[2021-06-07] MEDS: FELODIPINE 5 MG TABLET PO SCH (08:40)
[2021-06-07] MEDS: PANTOPRAZOLE 40 MG TABLET PO SCH (08:40)
[2021-06-07] MEDS: CITALOPRAM 20 MG TABLET PO SCH (08:40)
[2021-06-07] MEDS: MENTHOL/ZINC OXIDE OINT 71 GM JAR TOP SCH (08:41)
[2021-06-07] MEDS: METOPROLOL TARTRATE 25 MG TABLET PO SCH (08:41)
[2021-06-07 11:28] VITALS: BP 97/76
[2021-06-07] MEDS: LACTATED RINGERS 1,000 ML IV SCH (14:03)
== END 2021-06-07 14:45 | disposition hospice, inpatient (51) | DRG 871 ==
LOC: N.ED 11:59 → N.EDINP 15:25 → SUATTDRO 15:25 → N.EDINP 16:19 → N.TELEN 16:39
PROVIDERS: ADMIT Internal Medicine; ATTEND Emergency Medicine